=== PATIENT | female | born 1985 | race Caucasian/White ===

== ENCOUNTER 2024-08-14 17:19 | Inpatient (IN) | payer OTHER, SELFPAY ==
[~2024-08-14] VITALS: Ht 165.1 cm; Wt 67.0 kg
[2024-08-14 18:41] LABS: HEMATOCRIT 34.8 % (36.0-47.0); HEMOGLOBIN 11.8 g/dl (12.0-15.5); MEAN CORPUSCULAR HEMOGLOBIN 30.6 pg (27.0-33.0); MEAN CORPUSCULAR HGB CONC 33.9 g/dl (32.0-36.5); MEAN CORPUSCULAR VOLUME 90.4 fl (80.0-96.0); PLATELET COUNT, AUTOMATED 241 10^3/uL (150-450); RED BLOOD COUNT 3.85 10^6/uL (4.00-5.40); WHITE BLOOD COUNT 7.8 10^3/uL (4.0-10.0)
[2024-08-14 18:53] LABS: ETHYL ALCOHOL (ETHANOL) < 0.003 % (0.000-0.010)
[2024-08-14 18:55] LABS: ALBUMIN 3.9 G/DL (3.2-5.2); ALKALINE PHOSPHATASE 50 U/L (35-104); ALT/SGPT 26 U/L (7.0-40); AST/SGOT 28 U/L (<34); BILIRUBIN,DIRECT 0.3 MG/DL (<0.4); BLOOD UREA NITROGEN 16 MG/DL (9-23); CALCIUM LEVEL 9.5 MG/DL (8.5-10.1); CARBON DIOXIDE LEVEL 22 MMOL/L (20-31); CHLORIDE LEVEL 106 MMOL/L (98-107); CREATININE FOR GFR 0.71 MG/DL (0.55-1.30); GLOMERULAR FILTRATION RATE > 60.0 (>60); GLUCOSE, FASTING 170 MG/DL (60-100); POTASSIUM SERUM 3.5 MMOL/L (3.5-5.1); SALICYLATE LEVEL < 3.0 MG/DL (<30); SODIUM LEVEL 138 MMOL/L (136-145); TOTAL PROTEIN 6.6 G/DL (5.7-8.2)
[2024-08-14 18:57] LABS: THYROID STIMULATING HORMONE 7.539 uIU/ML (0.55-4.78)
[2024-08-14 19:34] LABS: BARBITURATES URINE NEGATIVE (NEGATIVE); BENZODIAZEPINES URINE NEGATIVE (NEGATIVE); COCAINE METABOLITE URINE NEGATIVE (NEGATIVE); METHADONE URINE NEGATIVE (NEGATIVE); OPIATES URINE NEGATIVE (NEGATIVE); PHENCYCLIDINE URINE NEGATIVE (NEGATIVE)
[2024-08-14 19:43] LABS: AMPHETAMINES LEVEL URINE POSITIVE (NEGATIVE); CANNABINOIDS URINE POSITIVE (NEGATIVE)
[2024-08-15 00:04] LABS: HCG, SERUM QUALITATIVE NEGATIVE (NEGATIVE)
[2024-08-15] MEDS ORDERED: HOME MED LIST COMPLETE! XX SCH (00:15)
[2024-08-15] MEDS ORDERED: traZODone 50 MG TAB PO PRN (01:20)
[2024-08-15] MEDS ORDERED: MOM 30ML SUSPENSION UDC PO PRN (01:20)
[2024-08-15] MEDS ORDERED: diphenhydrAMINE 25MG CAP PO PRN (01:20)
[2024-08-15] MEDS ORDERED: MAALOX 30 ML SUSP *UDC PO PRN (01:20)
[2024-08-15] MEDS ORDERED: IBUPROFEN 400MG TAB PO PRN (01:20)
[2024-08-15] MEDS: OLANZapine 5 MG TAB PO SCH (03:00)
[2024-08-15] MEDS ORDERED: OLANZapine ORAL DISINTEGRATING TAB 5MG PO PRN (07:35)
[2024-08-15] MEDS ORDERED: LORazepam 2 MG/ML 1ML VIAL As Ordered ONE (08:40)
[2024-08-15] MEDS ORDERED: diphenhydrAMINE 50MG/ML VIAL As Ordered ONE (08:41)
[2024-08-15] MEDS ORDERED: HALOPERIDOL LACTATE 5MG/ML VIAL As Ordered ONE (08:42)
[2024-08-15 08:45] VITALS: BP 190/93; TEMP 97.4
[2024-08-15] MEDS ORDERED: LORazepam 2 MG/ML 1ML VIAL IM STA (08:48)
[2024-08-15] MEDS ORDERED: diphenhydrAMINE 50MG/ML VIAL IM STA (08:48)
[2024-08-15] MEDS ORDERED: HALOPERIDOL LACTATE 5MG/ML VIAL IM STA (08:48)
[2024-08-15] MEDS: HALOPERIDOL LACTATE 5MG/ML VIAL IM STA (08:54)
[2024-08-15] MEDS: LORazepam 2 MG/ML 1ML VIAL IM STA (08:54)
[2024-08-15] MEDS: diphenhydrAMINE 50MG/ML VIAL IM STA (08:54)
[2024-08-15 09:30] VITALS: BP 130/81; TEMP 97.4
[2024-08-16 09:30] VITALS: BP 149/70; TEMP 96.9; O2SAT 100
[2024-08-17 06:10] VITALS: BP 153/74; TEMP 97.8; O2SAT 100
[2024-08-17] MEDS: ACETAMINOPHEN 325 MG TAB PO PRN (09:44)
[2024-08-17 14:50] VITALS: BP 141/86; TEMP 96.4; O2SAT 98
== END 2024-08-17 16:36 | disposition home or self-care (01) | DRG 897 ==
LOC: M ED 17:19 → M ED INP 08-15 01:16 → EDBD 08-15 01:16 → M PSY 08-15 03:14
PROVIDERS: ADMIT Psychiatry & Neurology Psychiatry; ATTEND Psychiatry & Neurology Psychiatry
DX: F15.959 Other stimulant use, unspecified with stimulant-induced psychotic disorder, unspecified (principal); Z59.00 Homelessness unspecified; Z78.1 Physical restraint status

== ENCOUNTER 2024-08-23 02:11 | Emergency (ER) | payer OTHER ==
[~2024-08-23] VITALS: Ht 167.6 cm; Wt 61.4 kg
[2024-08-23] MEDS: diphenhydrAMINE 50MG/ML VIAL IM ONE (02:15)
[2024-08-23] MEDS: LORazepam 2 MG/ML 1ML VIAL IM ONE (02:15)
[2024-08-23] MEDS: OLANZapine ORAL DISINTEGRATING TAB 5MG PO ONE (02:15)
[2024-08-23 02:38] LABS: HEMATOCRIT 36.3 % (36.0-47.0); HEMOGLOBIN 12.3 g/dl (12.0-15.5); MEAN CORPUSCULAR HEMOGLOBIN 30.8 pg (27.0-33.0); MEAN CORPUSCULAR HGB CONC 33.9 g/dl (32.0-36.5); MEAN CORPUSCULAR VOLUME 90.8 fl (80.0-96.0); PLATELET COUNT, AUTOMATED 221 10^3/uL (150-450)
[2024-08-23 03:03] LABS: ETHYL ALCOHOL (ETHANOL) 0.093 % (0.000-0.010)
[2024-08-23 03:04] LABS: SALICYLATE LEVEL < 3.0 MG/DL (<30)
[2024-08-23 03:05] LABS: ALKALINE PHOSPHATASE 52 U/L (35-104); ALT/SGPT 34 U/L (7.0-40); AST/SGOT 44 U/L (<34); BILIRUBIN,DIRECT 0.2 MG/DL (<0.4); BILIRUBIN,TOTAL 0.5 MG/DL (0.3-1.2); BLOOD UREA NITROGEN 23 MG/DL (9-23); CALCIUM LEVEL 9.4 MG/DL (8.5-10.1); CARBON DIOXIDE LEVEL 20 MMOL/L (20-31); CHLORIDE LEVEL 108 MMOL/L (98-107); CREATININE FOR GFR 0.79 MG/DL (0.55-1.30); GLOMERULAR FILTRATION RATE > 60.0 (>60); GLUCOSE, FASTING 91 MG/DL (60-100); POTASSIUM SERUM 3.9 MMOL/L (3.5-5.1); SODIUM LEVEL 139 MMOL/L (136-145); TOTAL PROTEIN 7.2 G/DL (5.7-8.2)
[2024-08-23 03:07] LABS: THYROID STIMULATING HORMONE 9.797 uIU/ML (0.55-4.78)
[2024-08-23 03:15] LABS: HCG, SERUM QUALITATIVE NEGATIVE (NEGATIVE)
[2024-08-23 13:47] LABS: AMPHETAMINES LEVEL URINE NEGATIVE (NEGATIVE); BARBITURATES URINE NEGATIVE (NEGATIVE); BENZODIAZEPINES URINE NEGATIVE (NEGATIVE); COCAINE METABOLITE URINE NEGATIVE (NEGATIVE); METHADONE URINE NEGATIVE (NEGATIVE)
[2024-08-23 13:48] LABS: OPIATES URINE NEGATIVE (NEGATIVE); PHENCYCLIDINE URINE NEGATIVE (NEGATIVE)
[2024-08-23 13:55] LABS: CANNABINOIDS URINE POSITIVE (NEGATIVE)
[2024-08-23 14:47] VITALS: BP 141/90; TEMP 97.6; O2SAT 96
== END 2024-08-23 15:04 | disposition home or self-care (01) ==
LOC: M ED 02:11
DX: F19.14 Other psychoactive substance abuse with psychoactive substance-induced mood disorder (principal); F10.10 Alcohol abuse, uncomplicated